=== PATIENT | female | born 1980 | race Caucasian/White ===

== ENCOUNTER → 2018-03-07 | Outpatient (CLI) | payer OTHER ==
[~2018-03-07] MED LIST: AMOX-291 PO
[2018-03-07 17:00] LABS: MEAN CORPUSCULAR HEMOGLOBIN 18.1 pg (27.0-34.8); MEAN CORPUSCULAR HGB CONC 30.2 g/dL (32.4-35.8); MEAN PLATELET VOLUME 7.5 fL (7.4-10.4); PLATELET COUNT 399 x10^3/uL (130-400); RED BLOOD COUNT 4.71 x10^6/uL (3.82-5.3); RED CELL DISTRIBUTION WIDTH 20.2 % (9.6-15.2)
[2018-03-07 17:25] LABS: MD YES
[2018-03-07 17:28] LABS: BAND#(MANUAL) 0.18 x10^3/uL; BANDS%(MANUAL) 2 % (0-7); EOS#(MANUAL) 0.09 x10^3/uL (0.0-0.4); EOS% (MANUAL) 1 % (1-7); LYMPH#(MANUAL) 2.11 x10^3/uL (1-3.4); LYMPHS% (MANUAL) 24 % (22-44); MONOS#(MANUAL) 0.44 x10^3/uL (0.3-2.7); MONOS% (MANUAL) 5 % (2-9); REACTIVE LYMPHS # (MANUAL) 0.09 x10^3/uL (0-0); REACTIVE LYMPHS % (MANUAL) 1 % (0-0); SEGS% (MANUAL) 67 % (42-75)
[2018-03-07 17:29] LABS: ANISOCYTOSIS 2+
[2018-03-07 17:38] LABS: <PLATELET ESTIMATE> ADEQUATE; HYPOCHROMIA 1+; MICROCYTOSIS 1+; POLYCHROMASIA 1+
[2018-03-07 17:39] LABS: <PLT MORPHOLOGY> NORMAL PLT MORPH; OVALOCYTES 1+
== END | disposition home or self-care (01) ==
LOC: STAR 15:28
PROVIDERS: ATTEND Obstetrics & Gynecology
DX: Z01.818 Encounter for other preprocedural examination (principal); R10.2 Pelvic and perineal pain
CPT/HCPCS: 36415; 84703; 85025

== ENCOUNTER 2018-03-14 13:09 | Observation (INO) | payer OTHER ==
[~2018-03-14] VITALS: Ht 160 cm; Wt 53.4 kg
[2018-03-14] MEDS ORDERED: LACTATED RINGERS 1,000 ML IV SCH (14:00)
[2018-03-14 14:08] LABS: HCG UR SG 1.004 (1.003-1.030)
[2018-03-14 14:12] VITALS: BP 123/73
[2018-03-14] MEDS ORDERED: FENTANYL PF 250 MCG/5ML ONE (14:23)
[2018-03-14] MEDS ORDERED: MIDAZOLAM 1 MG/ML, 2ML ONE (14:23)
[2018-03-14] MEDS ORDERED: NONE PER PT (14:24)
[2018-03-14] MEDS ORDERED: OxyconTIN ER 10 MG TAB.ER PO ONE (14:30)
[2018-03-14] MEDS ORDERED: GABAPENTIN 300 MG CAPSULE PO ONE (14:30)
[2018-03-14] MEDS ORDERED: ACETAMINOPHEN 500 MG TABLET PO ONE (14:30)
[2018-03-14] MEDS ORDERED: FAMOTIDINE 20 MG TABLET PO ONE (14:30)
[2018-03-14] MEDS ORDERED: METOCLOPRAMIDE 10MG TABLET PO ONE (14:30)
[2018-03-14] MEDS ORDERED: MISOPROSTOL 200 MCG TABLET ONE (14:39)
[2018-03-14] MEDS ORDERED: BUPIVACAINE/PF-EPI 0.25% 1:200K ONE (14:39)
[2018-03-14] MEDS ORDERED: SILVER NITRATE STICK TP ONE (14:40)
[2018-03-14] MEDS ORDERED: OXYTOCIN 10 UNITS/ML, 1ML ONE (14:40)
[2018-03-14] MEDS ORDERED: METHYLERGONOVINE 0.2 MG/ML IM ONE (14:41)
[2018-03-14] MEDS ORDERED: FENTANYL PF 100 MCG/2ML IV PRN (15:30)
[2018-03-14] MEDS ORDERED: LABETALOL 5MG/ML, 20ML IV PRN (15:30)
[2018-03-14] MEDS ORDERED: OXYcodone 5 MG/5 ML ORAL.SOL UDC PO PRN (15:30)
[2018-03-14] MEDS ORDERED: MEPERIDINE/PF 25MG/0.5ML IVPush PRN (15:30)
[2018-03-14] MEDS ORDERED: HYDROmorphone 2 MG/ML, 1ML IV PRN (15:30)
[2018-03-14] MEDS ORDERED: ONDANSETRON 2MG/ML, 2ML IV PRN (15:30)
[2018-03-14] MEDS ORDERED: hydrALAzine 20 MG/ML, 1ML IV PRN (15:30)
[2018-03-14] MEDS ORDERED: PROMETHAZINE 25 MG/ML, 1ML IV PRN (15:30)
[2018-03-14] MEDS ORDERED: VASOPRESSIN 20 UNIT/ML, 1ML ONE (15:44)
[2018-03-14] MEDS ORDERED: CEFAZOLIN 1,000 MG ONE (15:47)
[2018-03-14] MEDS ORDERED: DEXAMETHASONE 4 MG/ML, 1ML ONE (15:47)
[2018-03-14] MEDS ORDERED: PROPOFOL 10 MG/ML, 20ML ONE (16:50)
[2018-03-14] MEDS ORDERED: ONDANSETRON 2MG/ML, 2ML ONE (16:50)
[2018-03-14] MEDS ORDERED: ROCURONIUM 10MG/ML,5ML ONE ×2 (17:34)
[2018-03-14] MEDS ORDERED: D5%-LACTATED RINGERS 1,000 ML IV SCH (17:47)
[2018-03-14] MEDS ORDERED: ACETAMINOPHEN 325 MG TABLET PO PRN (18:00)
[2018-03-14] MEDS ORDERED: OXYcodone 5 MG/5 ML ORAL.SOL UDC ONE (18:05)
[2018-03-14] MEDS ORDERED: IBUPROFEN 600 MG TABLET PO SCH (21:00)
== END 2018-03-14 21:20 | disposition home or self-care (01) ==
LOC: OUT 13:09 → ORIP 17:47 → INTOOBSV 17:47 → 4NOR 18:56
PROVIDERS: ADMIT Obstetrics & Gynecology; ATTEND Obstetrics & Gynecology
DX: D27.1 Benign neoplasm of left ovary (principal); D27.0 Benign neoplasm of right ovary; D64.9 Anemia, unspecified; K66.8 Other specified disorders of peritoneum; N93.9 Abnormal uterine and vaginal bleeding, unspecified; Z98.891 History of uterine scar from previous surgery
CPT/HCPCS: 58662; 81025; 88305; G0378; J0690; J1100; J2250; J2405; J2704; J3010; J7120; J2210; J2590